=== PATIENT | female | born 1965 | race Caucasian/White ===

== ENCOUNTER 2016-05-17 13:42 | Emergency (ER) | payer OTHER ==
[~2016-05-17] VITALS: Ht 162.6 cm; Wt 91.0 kg
[2016-05-17 13:44] VITALS: BP 232/123; PULSE 128; RESP 14; TEMP 98.1; O2SAT 100
[2016-05-17 15:12] VITALS: BP 203/135; PULSE 122; RESP 20
[2016-05-17] MEDS ORDERED: LISI40TA PO (15:36)
[2016-05-17] MEDS ORDERED: ASPI325T PO (15:36)
[2016-05-17] MEDS ORDERED: ZINC50TA PO (15:36)
[2016-05-17] MEDS ORDERED: PLAV75TA29 PO (15:36)
[2016-05-17] MEDS ORDERED: traMADol HCL 50 MG TAB PO ONE (16:00)
[2016-05-17] MEDS ORDERED: ACETAMINOPHEN/HYDROcodone 325 MG/5 MG TAB PO ONE (16:00)
--- NOTE | 2016-05-17 16:08 | PD ---
HPI Chief Complaint: ENT Complaint Time Seen by Provider: 16:06 Travel History International Travel<30 days: No Contact w/Intl Traveler<30days: No Traveled to known affect area: No History of Present Illness HPI Patient comes in complaining of bilateral ear and eye pain ongoing for approximately 2 weeks along with associated sinus pressure. Patient tried cleaning them with both peroxide with no improvement. Patient taking Tylenol and seemed to help some. Patient describes pain is burning like in nature. Getting progressively worse. Denies any change in vision, headache, nausea, vomiting, chest pain or shortness breath, or known fevers. Patient reports that she is on blood pressure medication is normally controlled except when she is in pain. Patient reports she takes her blood pressure medicine at night. Denies any contact use, trauma, headache, chest pain, shortness of breath, numbness or tingling, back pain, or abdominal pain. PFSH Past Medical History Cardiac Catheterization: Yes Cardiovascular Problems: Yes (stent) Myocardial Infarction: Yes Influenza Vaccination: No ?: Not Past Surgical History Coronary Stent: Yes Social History Alcohol Use: No Tobacco Use: No Substance Use: No Allergies-Medications (Allergen,Severity, Reaction): Coded Allergies: No Known Allergies (Unverified , 05/17/16) Reported Meds & Prescriptions Reported Meds & Active Scripts Active Cortisporin HC Otic Drops (Vmzsfpca-Lqscnnioc-PT Otic Drops) 3.5-10,000-1 Mg- Units-% Soln 4 Drop EACH EAR QID Theratears Unit-Dose Opth Drops (Carboxymethylcellulose Sodium Opth Drops) 0.25 % Soln 2 Drop EACH EYE Q4H PRN Augmentin (Amoxicillin-Clavulanate) 875-125 mg Tab 875 Mg PO BID not for use in CrCl <30 ml/min. Reported Zinc 50 Mg Tab 50 Mg PO DAILY Aspirin 325 Mg Tab 325 Mg PO DAILY Lisinopril 40 Mg Tab 40 Mg PO DAILY Plavix (Clopidogrel Bisulfate) 75 Mg Tab 75 Mg PO DAILY Review of Systems Except as stated in HPI: all other systems reviewed are Neg Physical Exam Narrative GENERAL: Well-developed, overly nourished, in no acute distress, and non-ill appearing. SKIN: Warm and dry. HEAD: Atraumatic. Normocephalic. EYES: Pupils equal and round. EOMI. No scleral icterus. Injection bilaterally without drainage. ENT: No nasal bleeding or discharge. Mucous membranes pink and moist. Auditory canals bilateral mild erythematous without significant edema. There is no drainage. Tympanic membranes are pearly [place]. Tenderness to facial sinuses to palpation. NECK: Trachea midline. Supple. No nuclear rigidity. No cervical lymphadenopathy. CARDIOVASCULAR: Regular rate and rhythm. No murmur appreciated. RESPIRATORY: No accessory muscle use. No respiratory distress. Clear to auscultation. Breath sounds equal bilaterally. MUSCULOSKELETAL: No obvious deformities. No clubbing. No cyanosis. No edema. Full range of motion. NEUROLOGICAL: Awake and alert. No obvious cranial nerve deficits. Motor grossly within normal limits. Normal speech. PSYCHIATRIC: Appropriate mood and affect; insight and judgment normal. Data Data Last Documented VS Vital Signs Date Time Temp Pulse Resp B/P Pulse Ox O2 Delivery O2 Flow Rate FiO2 05/17/16 17:11 85 18 196/95 98 Room Air 05/17/16 13:44 98.1 Orders Tramadol (Ultram) (05/17/16 16:00) Acetamin-Hydrocod 325-5 Mg ([place] 5-325 (05/17/16 16:00) MDM Medical Decision Making Medical Screen Exam Complete: Yes Emergency Medical Condition: Yes Differential Diagnosis Allergic conjunctivitis, contact conjunctivitis, viral Illness, negative conjunctivitis, otitis media, otitis externa, otalgia, sinusitis, other Narrative Course Patient looks great, non-ill appearing. The patient is tolerating fluids and is well hydrated. Appears acute sinusitis. No clinical evidence by history or evaluation to suspect meningitis and/or sepsis. There was no evidence to suggest deep abscess or cavernous sinus involvement. I discussed with the patient, diagnosis, plan of care, medications and to follow up with the patient s primary physician. The patient was instructed to return if the worsens in anyway, especially if not tolerating fluids, increased sinus pain or swelling, worsening headache, persistent fever, difficulty swallowing or breathing, or as needed. The patient agreed with plan. Patient with mild allergic conjunctivitis. No evidence of foreign body by history or exam. No history to suspect corneal ulceration as well. There is no evidence of iritis, glaucoma, preseptal cellulitis, periorbital or orbital cellulitis. Will place patient on ophthalmologic eyedrops for symptomatic relief. This was discussed with the patient. The patient was instructed to follow up with their physician or return here if worsened, increased pain, decreased vision, swelling around the eye or as needed. The patient agreed with plan. The patient has a prior history of hypertension and states has been taking their antihypertensive medications. The patient denied changes in vision, nausea , vomiting, dizziness, headache, weakness or loss of sensation. Exam is unremarkable. The patient is in no distress and the patients neurological exam is normal, neck is supple and without meningismus. The headache is not consistent with meningitis or infection, nor is it consistent with intracranial bleed (SAH etc.), carotid dissection, nor mass by history and examination. The headache does not appear to be associated with the patients elevated blood pressures. The patient denied and chest, back or abdominal pain. The patient also denied any shortness of breath, dyspnea on exertion, orthopnea or PND. The patient denies any edema to extremities. The patients blood pressures at discharge were at an acceptable level. The headache was also improved. I discussed with the patient that the standard of care is to not adjust antihypertensive medications at this time and for them to follow up with a primary care physician for continued outpatient evaluation and potential adjustment of blood pressure medication at that time. Return warnings were given to the patient and the patient agreed with plan of care. Patient in no obvious distress upon re-evaluation. Discussed patient with Dr. Elizondo, who is in agreement with plan of care and disposition. Patient was asked if they wanted to speak to my attending, which the patient did not wish to do at this time. Any questions/concerns in reference to patient diagnosis/ condition discussed and clarified prior to patient's discharge. Reinforced sheer importance of close follow up with patient's primary physician or primary care clinic. Instructed patient to return to ED immediately, if symptoms return/ worsen. Pt showed understanding of above instructions. Further instructions and recommendations were detailed in discharge paperwork. Pt ambulated without difficulty out of ED at discharge. Diagnosis Primary Impression: Sinusitis Qualified Code: J01.90 - Acute sinusitis, recurrence not specified, unspecified location Additional Impressions: Otalgia of both ears Acute conjunctivitis of both eyes Qualified Code: H10.33 - Acute conjunctivitis of both eyes, unspecified acute conjunctivitis type Patient Instructions: Conjunctivitis (ED), Earache (ED), General Instructions, Hypertension (ED), Sinusitis (ED) Additional Instructions: Follow-up with your primary care physician this week for reevaluation and possible adjustment of your blood pressure medicine. Take all medication as prescribed. Return to the emergency department if symptoms get worse. Med/Other Pt SpecificInfo: Prescription(s) given Scripts Gflnsqjg-Eueakgyeb-VG Otic Drops (Cortisporin HC Otic Drops)3.5-10,000-1 Mg- Units-% Soln4 Drop EACH EAR QID #1 BOTTLE Ref 0 Prov:Eliseo Long MD 05/17/16 Carboxymethylcellulose Sodium Opth Drops (Theratears Unit-Dose Opth Drops)0.25% Soln2 Drop EACH EYE Q4H PRN (DRY EYE) #1 BOX Ref 0 Prov:Eliseo Long MD 05/17/16 Amoxicillin-Clavulanate (Augmentin)875-125 mg [id number] Mg PO BID #10 TAB Ref 0 not for use in CrCl <30 ml/min. Prov:Eliseo Long MD 05/17/16 Disposition: 01 DISCHARGE HOME Condition: Stable Danilo Ascencio May 17, 2016 16:08
[2016-05-17 17:11] VITALS: BP 196/95; PULSE 85; RESP 18; O2SAT 98
[2016-05-17] MEDS ORDERED: AUGM875T PO (17:18)
[2016-05-17] MEDS ORDERED: CORT1SOL EACH EAR (17:18)
[2016-05-17] MEDS ORDERED: THERSOL2 EACH EYE (17:18)
== END 2016-05-17 17:26 | disposition home or self-care (01) ==
LOC: NEPE 13:42
DX: J32.9 Chronic sinusitis, unspecified (principal); H92.03 Otalgia, bilateral; H10.33 Unspecified acute conjunctivitis, bilateral; I25.2 Old myocardial infarction
CPT/HCPCS: 99283